=== PATIENT | female | born 1965 | race Caucasian/White ===

== ENCOUNTER 2018-12-20 06:01 | Day surgery (SDC) | payer OTHER ==
[~2018-12-20 06:01] MED LIST: CEFAZOLIN 2 GM/50 ML (PMX) 50 ML IVPB; SOD CHLORIDE 0.9% 1,000 ML IV
[2018-12-20] MEDS ORDERED: BUPIVACAINE 0.25% (MPF) 30 ML INJ (06:53)
[2018-12-20] MEDS ORDERED: LIDOCAINE 1%/EPI (1:100,000) (MDV) 20 ML (06:53)
[2018-12-20] MEDS ORDERED: ONDANSETRON 4 MG INJ (07:00)
[2018-12-20] MEDS ORDERED: HYDROmorphONE 2 MG/ML SYG (07:00)
[2018-12-20] MEDS ORDERED: DEXAMETHASONE 4 MG/ML 5 ML INJ (07:00)
[2018-12-20] MEDS ORDERED: CEFAZOLIN 1 GM INJ (07:00)
[2018-12-20] MEDS ORDERED: FENTAnyl 50 MCG/ML VIAL (07:17)
[2018-12-20] MEDS ORDERED: PROPOFOL 20 ML (07:17)
[2018-12-20] MEDS ORDERED: MIDAZOLAM 1 MG/ML 2 ML INJ (07:17)
[2018-12-20] MEDS ORDERED: LIDOCAINE 2% (SDV) 5 ML INJ (07:17)
[2018-12-20] MEDS ORDERED: METOCLOPRAMIDE 10 MG INJ (07:18)
[2018-12-20] MEDS ORDERED: HYDROmorphONE 1 MG/5 ML IV SYRINGE IV ×2 (07:30)
[2018-12-20] MEDS ORDERED: MEPERIDINE 25 MG INJ IV (07:30)
[2018-12-20] MEDS ORDERED: FENTAnyl 50 MCG/ML VIAL IV ×2 (07:30)
[2018-12-20] MEDS ORDERED: DIPHENHYDRAMINE 50 MG INJ IV (07:30)
[2018-12-20] MEDS ORDERED: LEVALBUTEROL (NEB) 1.25 MG/0.5 ML AMP HHN (07:30)
[2018-12-20] MEDS ORDERED: IPRATROPIUM (NEB) 0.5 MG/2.5 ML AMP HHN (07:30)
[2018-12-20] MEDS ORDERED: ONDANSETRON 4 MG INJ IV (07:30)
[2018-12-20] MEDS: BUPIVACAINE 0.5%/EPI (SDV) 30 ML INJ (08:07)
[2018-12-20] MEDS ORDERED: HYDROCODONE/APAP (5/325) TAB PO (09:30)
[2018-12-20] MEDS ORDERED: IBUPROFEN 600 MG TAB PO (09:30)
[2018-12-20] MEDS ORDERED: KETOROLAC 30 MG INJ IV (09:30)
== END 2018-12-20 10:20 | disposition home or self-care (01) ==
LOC: SDS 06:01
DX: D17.1 Benign lipomatous neoplasm of skin and subcutaneous tissue of trunk (principal)
CPT/HCPCS: 21933; 88307